=== PATIENT | female | born 1930 | race Caucasian/White ===

== ENCOUNTER 2017-02-14 12:52 | Inpatient (IN) | payer OTHER, BC ==
[~2017-02-14] VITALS: Ht 172.7 cm; Wt 87.2 kg
[~2017-02-14 12:52] MED LIST: ASPIR-LOW81 MG PO; CARDIZEM CD120 M1 PO; CRESTOR5 MG PO; LAMOTRIGINE100 MG PO; LAMOTRIGINE25 MG PO; LEVOFLOXACIN250 MG PO; LEVOTHYROXINE175 MCG PO; LOPRESSOR50 MG PO; NORTRIPTYLINE H25 MG PO; OXYBUTYNIN CHLOR5 MG PO; PROTONIX20 MG PO; SPIRONOLACTONE25 MG PO; TAB-A-VITE1 EACH PO; XANAX0.5 MG PO
[2017-02-14 13:42] LABS: EOSINOPHIL (%) 3.1 % (0-5); EOSINOPHIL COUNT 0.2 K/uL (0-0.3); HEMATOCRIT 38.5 % (36.0-46.0); IMMATURE GRANULOCYTE (%) 0.4 % (0.0-0.7); INSTRUMENT ABS NEUTROPHIL CT 3.9 K/uL; LYMPHOCYTE COUNT 0.7 K/uL (1.0-2.8); MCH 28.3 PG (29.0-34.0); MCHC 31.7 G/DL (30.0-36.0); MCV 89.3 FL (83-99); MONOCYTE (%) 11.6 % (3-12); MONOCYTE COUNT 0.6 K/uL (0-0.8); NEUTROPHIL (%) 71.6 % (45-76); NEUTROPHIL COUNT 3.9 K/uL (1.8-6.4); PLATELET COUNT 185 K/uL (156-360); RBC DIS.WIDTH-CV 12.8 % (11.8-14.6); RBC DIS.WIDTH-SD 42.6 % (39-53); RED BLOOD COUNT 4.31 M/uL (3.80-5.20); WHITE BLOOD COUNT 5.4 K/uL (4.1-10.2)
[2017-02-14 13:52] LABS: CHLORIDE 103 mEq/L (99-109); POTASSIUM 3.2 mEq/L (3.7-5.4); SODIUM 141 mEq/L (136-147)
[2017-02-14 13:53] LABS: GLUCOSE 105 mg/dL (70-99)
[2017-02-14 13:55] LABS: ANION GAP 10 MEQ/L (2-14)
[2017-02-14 13:57] LABS: GFR ESTIMATE (CALCULATED) > 59 mL/min/
[2017-02-14 13:58] LABS: UREA NITROGEN (BUN) 18 mg/dL (9-23)
[2017-02-14] MEDS ORDERED: MOTRIN800 MG PO (15:42)
[2017-02-14] MEDS ORDERED: CLONIDINE HCL0.1 MG PO (15:52)
[2017-02-14] MEDS ORDERED: METOPROLOL TART50 MG PO (15:54)
[2017-02-14] MEDS ORDERED: OXYBUTYNIN CHLOR5 MG PO (15:55)
[2017-02-14] MEDS ORDERED: PRILOSEC20 MG PO (15:56)
[2017-02-14] MEDS ORDERED: SERTRALINE HCL25 MG PO (15:57)
[2017-02-14] MEDS ORDERED: FERROUS SULFAT325 MG PO (15:58)
[2017-02-14 15:59] LABS: ADD MIUA? YES; BILIRUBIN NEGATIVE; BLOOD NEGATIVE; COLOR AMBER ((YELLOW)); GLUCOSE (STRIP) NEGATIVE; KETONES NEGATIVE; LEUKOCYTES LARGE; NITRITE POSITIVE; PROTEIN (STRIP) 30; SPECIFIC GRAVITY 1.012 (1.000-1.030)
[2017-02-14] MEDS ORDERED: ZOCOR5 MG PO (15:59)
[2017-02-14] MEDS ORDERED: ACETAMINOPHEN325 M3 PO (16:00)
[2017-02-14 16:02] LABS: BACTERIA 2+ /HPF; EPITHELIAL CELLS RARE /HPF; MUCUS TRACE /LPF; UCUL ADDED? YES; WHITE BLOOD CELLS TNTC /HPF (0-5); WHITE BLOOD CELLS CLUMP MANY /HPF (0-5)
[2017-02-14 17:43] LABS: TROP-I INTERPRETATION NEGATIVE; TROPONIN-I 0.01 ng/mL (0.0-0.30)
[2017-02-14 19:37] VITALS: BP 204/78
[2017-02-14 23:56] VITALS: BP 187/81
[2017-02-15 01:47] LABS: TROP-I INTERPRETATION NEGATIVE; TROPONIN-I 0.02 ng/mL (0.0-0.30)
[2017-02-15 03:58] VITALS: BP 154/71
[2017-02-15 06:31] LABS: HEMATOCRIT 37.9 % (36.0-46.0); MCH 29.1 PG (29.0-34.0); MCHC 32.5 G/DL (30.0-36.0); MCV 89.6 FL (83-99); MEAN PLAT.VOLUME 11.9 uM^3 (9.5-12.4); PLATELET COUNT 203 K/uL (156-360); RBC DIS.WIDTH-CV 13.2 % (11.8-14.6); RBC DIS.WIDTH-SD 42.9 % (39-53); RED BLOOD COUNT 4.23 M/uL (3.80-5.20); WHITE BLOOD COUNT 6.3 K/uL (4.1-10.2)
[2017-02-15 06:58] LABS: ANION GAP 13 MEQ/L (2-14); CHLORIDE 100 MEQ/L (99-109); GFR ESTIMATE (CALCULATED) > 59 mL/min/; GLUCOSE 86 mg/dL (70-99); POTASSIUM 3.5 MEQ/L (3.7-5.4); SAMPLE HEMOLYSIS CHECK 0; SAMPLE ICTERIC CHECK 0; SAMPLE LIPEMIA CHECK 0; SODIUM 139 MEQ/L (136-147); UREA NITROGEN (BUN) 19 mg/dL (9-23)
[2017-02-15 08:20] VITALS: BP 142/76
[2017-02-15 12:14] VITALS: BP 130/73
[2017-02-15 16:58] VITALS: BP 159/72
[2017-02-15 19:52] VITALS: BP 185/71
[2017-02-16 00:07] VITALS: BP 177/107
[2017-02-16 03:36] VITALS: BP 154/71
[2017-02-16 07:58] VITALS: BP 170/80
[2017-02-16 09:20] VITALS: BP 140/70
[2017-02-16 11:05] VITALS: BP 199/84
[2017-02-16] MEDS ORDERED: CIPROFLOXACIN500 M1 PO (11:26)
[2017-02-16] MEDS ORDERED: AMLODIPINE BESYL5 MG PO (11:26)
[2017-02-16] MEDS ORDERED: MACROBID100 MG PO (11:45)
[2017-02-16 12:38] VITALS: BP 158/85
== END 2017-02-16 14:50 | disposition home or self-care (01) | DRG 305 ==
LOC: EME 12:52 → EDOF 16:28 → 5SOUTH 16:28
PROVIDERS: Emergency Medicine; Hospitalist
DX: I16.0 Hypertensive urgency (principal); N30.01 Acute cystitis with hematuria; I10 Essential (primary) hypertension; E03.9 Hypothyroidism, unspecified; Z66 Do not resuscitate; K21.9 Gastro-esophageal reflux disease without esophagitis; F03.90 Unspecified dementia, unspecified severity, without behavioral disturbance, psychotic disturbance, mood disturbance, and anxiety; F41.9 Anxiety disorder, unspecified; I73.9 Peripheral vascular disease, unspecified; R29.6 Repeated falls; Z87.01 Personal history of pneumonia (recurrent); Z79.899 Other long term (current) drug therapy; Z79.82 Long term (current) use of aspirin; Z88.0 Allergy status to penicillin; Z88.2 Allergy status to sulfonamides; Z88.5 Allergy status to narcotic agent
CPT/HCPCS: 70450; 71010; 73564; 73590; 80048; 81003; 84484; 85025; 85027; 87040; 87077; 87086; 87186; 93005; 99281; 99285; G8987 CK; G8988 CI; J0360; J0696; J1644; J7050